=== PATIENT | male | born 1980 | race Caucasian/White ===

== ENCOUNTER 2017-01-19 13:07 | Inpatient (IN) | payer SELFPAY ==
[~2017-01-19] VITALS: Ht 177.8 cm; Wt 76.4 kg
[2017-01-19] MEDS ORDERED: ALPR0.255 PO (13:23)
[2017-01-19] MEDS ORDERED: ARIP2 PO (13:23)
[2017-01-19 14:22] LABS: BASOPHILS % (AUTO) 0.4 % (0.0-2.0); EOSINOPHILS % (AUTO) 0.1 % (1.0-6.0); HEMATOCRIT 46.9 % (41-53); HEMOGLOBIN 15.4 g/dL (13.5-17.5); LYMPHOCYTES # (AUTO) 2.2 K/uL (1.0-4.8); LYMPHOCYTES % (AUTO) 20.2 % (22.0-44.0); MEAN CORPUSCULAR HEMOGLOBIN 27.6 pg (26.0-34.0); MEAN CORPUSCULAR HGB CONC 32.7 G/dL (31.0-37.0); MEAN CORPUSCULAR VOLUME 84 fL (80-100); MONOCYTES # (AUTO) 0.6 K/uL (0.1-1.0); MONOCYTES % (AUTO) 5.4 % (2.0-9.0); NEUTROPHILS % (AUTO) 73.9 % (40.0-70.0); PLATELET COUNT (AUTO) 366 K/uL (150-450); RED BLOOD CELL COUNT(AUTO) 5.56 MIL/uL (4.50-5.90); RED CELL DISTRIBUTION WIDTH 14.2 % (11.5-14.5); WHITE BLOOD COUNT (AUTO) 10.8 K/uL (4.5-11.0)
[2017-01-19 14:32] LABS: ANION GAP 13 mmol/L (8-16); CARBON DIOXIDE 26 mmol/L (22-29); CHLORIDE 101 mmol/L (98-107); CREATININE 0.68 mg/dL (0.60-1.30); GLOMERULAR FILTR. RATE CALC > 60 mL/min (>60); POTASSIUM 4.8 mmol/L (3.5-5.1); SODIUM SERUM 140 mmol/L (136-145); UREA NITROGEN, BLOOD 6 mg/dL (7-18)
[2017-01-19 14:38] LABS: ALANINE AMINOTRANSFERASE 21 U/L (12-78); ALBUMIN 4.3 g/dL (3.4-5.0); ASPARTATE AMINOTRANSFERASE 25 U/L (15-37); BILIRUBIN,TOTAL 0.4 mg/dL (0.1-1.0); TOTAL PROTEIN, SERUM 9.7 g/dL (6.4-8.2)
[2017-01-19] MEDS ORDERED: HALOPERIDOL 5 MG TABLET PO ONE (15:15)
[2017-01-19] MEDS ORDERED: LORazepam 2 MG TABLET PO ONE (15:15)
[2017-01-19] MEDS ORDERED: NICOTINE 7 MG/24 HOUR PATCH TD ONE (15:45)
[2017-01-19 19:12] VITALS: BP 122/80
[2017-01-20] MEDS: LORazepam 2 MG TABLET PO PRN ×3 (02:05→13:09)
[2017-01-20] MEDS: HALOPERIDOL 5 MG TABLET PO PRN ×3 (02:06→13:09)
[2017-01-20 08:30] VITALS: BP 126/79
[2017-01-20] MEDS: NICOTINE 21 MG/24 HOUR PATCH TD SCH (08:40)
[2017-01-20] MEDS: ARIPiprazole 5 MG TABLET PO SCH (17:09)
[2017-01-20 20:07] VITALS: BP 119/76
[2017-01-21 01:40] VITALS: BP 135/83
[2017-01-21] MEDS: TraZODone HCL 50 MG TABLET PO PRN (01:43)
[2017-01-21 08:31] VITALS: BP 137/85
[2017-01-21] MEDS: HALOPERIDOL 5 MG TABLET PO PRN (09:07)
[2017-01-21] MEDS: LORazepam 2 MG TABLET PO PRN ×2 (09:07→16:53)
[2017-01-21] MEDS: ARIPiprazole 5 MG TABLET PO SCH ×2 (09:07→16:53)
[2017-01-21] MEDS: NICOTINE 21 MG/24 HOUR PATCH TD SCH (09:09)
[2017-01-21 18:30] VITALS: BP 129/81
[2017-01-22] MEDS: TraZODone HCL 50 MG TABLET PO PRN (01:57)
[2017-01-22 02:22] VITALS: BP 130/77
[2017-01-22] MEDS: HALOPERIDOL 5 MG TABLET PO PRN ×2 (03:11→23:03)
[2017-01-22 08:00] VITALS: BP 127/73
[2017-01-22] MEDS: ARIPiprazole 5 MG TABLET PO SCH ×2 (09:20→16:50)
[2017-01-22] MEDS: NICOTINE 21 MG/24 HOUR PATCH TD SCH (09:20)
[2017-01-22 18:35] VITALS: BP 118/69
[2017-01-22] MEDS: LORazepam 2 MG TABLET PO PRN (23:01)
[2017-01-23 08:30] VITALS: BP 121/61
[2017-01-23] MEDS: HALOPERIDOL 5 MG TABLET PO PRN (08:52)
[2017-01-23] MEDS: ARIPiprazole 5 MG TABLET PO SCH ×2 (08:52→17:19)
[2017-01-23] MEDS: LORazepam 2 MG TABLET PO PRN (08:52)
[2017-01-23] MEDS: NICOTINE 21 MG/24 HOUR PATCH TD SCH (08:53)
[2017-01-23 17:44] VITALS: BP 132/79
[2017-01-24] MEDS: HALOPERIDOL 5 MG TABLET PO PRN ×2 (00:32→06:40)
[2017-01-24 00:38] VITALS: BP 138/89
[2017-01-24] MEDS ORDERED: IBUPROFEN 600 MG TABLET PO PRN (07:15)
[2017-01-24] MEDS ORDERED: ACETAMINOPHEN 325 MG TABLET PO PRN (07:15)
[2017-01-24] MEDS: ARIPiprazole 5 MG TABLET PO SCH (08:34)
[2017-01-24] MEDS: LORazepam 2 MG TABLET PO PRN (08:34)
[2017-01-24] MEDS: NICOTINE 21 MG/24 HOUR PATCH TD SCH (08:34)
[2017-01-24 09:02] VITALS: BP 130/83
[2017-01-24] MEDS ORDERED: DiphenhydrAMINE HCL 50 MG/ML VIAL IM ONE (09:15)
[2017-01-24] MEDS ORDERED: LORazepam 2 MG/ML VIAL IM ONE (09:15)
[2017-01-24] MEDS ORDERED: HALOPERIDOL LACTATE 5 MG/ML VIAL IM ONE (09:15)
== END 2017-01-24 12:45 | DRG 885 ==
LOC: EMS 13:09 → 3EI 17:34
PROVIDERS: ADMIT Psychiatry & Neurology Child & Adolescent Psychiatry; ATTEND Psychiatry & Neurology Child & Adolescent Psychiatry
DX: F25.1 Schizoaffective disorder, depressive type (principal); R45.851 Suicidal ideations; F15.10 Other stimulant abuse, uncomplicated; F17.200 Nicotine dependence, unspecified, uncomplicated; F41.9 Anxiety disorder, unspecified; Z59.0 Homelessness; Z79.899 Other long term (current) drug therapy; Z71.51 Drug abuse counseling and surveillance of drug abuser; Z71.6 Tobacco abuse counseling
CPT/HCPCS: 99285; 99406; G0480; J1200; J1630; J2060